=== PATIENT | female | born 1930 | race Caucasian/White ===

== ENCOUNTER 2016-10-23 17:11 | Outpatient (CLI) | payer MEDICARE ==
[2016-10-23 20:54] LABS: ALT (SGPT) 11 U/L (0-55); AST (SGOT) 19 U/L (5-34); Alkaline Phosphatase 93 U/L (40-150); Anion Gap 15 mmol/L (10-20); BUN (Urea Nitrogen) 16 mg/dL (9.8-20.1); Bilirubin, Total 0.4 mg/dL (0.2-1.2); Calc. Creatinine Clearance 0 mL/min (70-130); Calcium 9.4 mg/dL (7.8-10.44); Carbon Dioxide 25 mmol/L (23-31); Chloride 106 mmol/L (98-107); Estimated GFR-MDRD 64; Globulin 2.7 g/dL (2.4-3.5); LDL Cholesterol, Calculated 163 mg/dL; Protein, Total 6.9 g/dL (5.8-8.1)
== END 2016-10-23 17:12 | disposition home or self-care (01) ==
LOC: NAV SJFMSP 17:11
PROVIDERS: ATTEND Family Medicine
DX: E03.9 Hypothyroidism, unspecified (principal); E78.5 Hyperlipidemia, unspecified
CPT/HCPCS: 80053; 80061; 84439; 84443

== ENCOUNTER 2021-06-27 09:46 | Emergency (ER) | payer MEDICARE ==
[2021-06-28 08:27] LABS: SARS-CoV-2 PCR by NAA Not Detected (NotDetected)
== END 2021-06-27 10:32 | disposition home or self-care (01) ==
LOC: NAV ERS 09:46
DX: R06.02 Shortness of breath (principal); R05 Cough; R11.10 Vomiting, unspecified; Z20.822 Contact with and (suspected) exposure to COVID-19; E78.5 Hyperlipidemia, unspecified; I10 Essential (primary) hypertension; Z79.899 Other long term (current) drug therapy
CPT/HCPCS: 99284; U0003; U0005